=== PATIENT | male | born 1970 | race Caucasian/White ===

== ENCOUNTER 2018-06-26 08:43 | Outpatient (CLI) | payer MEDICARE ==
--- NOTE | 2018-06-26 12:00 | MRI ---
MRI LUMBAR SPINE WITHOUT CONTRAST: HISTORY: Back pain. Previous lumbar fusion. COMPARISON: 05/26/2011 TECHNIQUE: MRI lumbar spine is performed without contrast. Multisequential, multiplanar imaging is performed. FINDINGS: There is extensive metallic susceptibility artifact at the L3, L4, L5, and S1 levels. Evaluation of these levels is limited on the sagittal as well as axial sequences. The visualized lumbar vertebrae have appropriate T1 marrow signal intensity. No evidence of fracture . No significant STIR hyperintensity to suggest vertebral body edema or ligamentous injury. Symmetric signal intensity of the psoas muscles. Appropriate signal intensity of the visualized delisa d organs. The conus medullaris terminates at the mid L1 level. T11-T12: Adequate disk hydration. No significant central canal stenosis or foraminal narrowing. L1-L2: Adequate disk hydration. No significant central canal stenosis or foraminal narrowing. L2-L3: Limited evaluation due to metallic susceptibility artifact. Grossly, the central spinal shira l appears to be patent. No significant foraminal narrowing. L3-L4: Limited evaluation due to metallic susceptibility artifact. L4-L5: Limited evaluation due to metallic susceptibility artifact. L5-S1: Limited evaluation due to metallic susceptibility artifact. IMPRESSION: No significant stenosis of the visualized lumbar spine. Multiple levels cannot be assessed due to me tallic susceptibility artifact. POS: DAVID
== END 2018-06-26 08:44 | disposition home or self-care (01) ==
LOC: TBSIIMAG 08:43
PROVIDERS: ATTEND Family Medicine
DX: M54.9 Dorsalgia, unspecified (principal)
CPT/HCPCS: 72148

== ENCOUNTER 2019-05-10 01:09 | Observation (INO) | payer MEDICARE ==
[2019-05-10] MEDS ORDERED: Fentanyl 100 MCG/2 ML VIAL ONE (01:41)
[2019-05-10 01:47] LABS: PTT 43.1 SEC (22.9-36.1)
[2019-05-10 01:48] LABS: Prothrombin Time 13.3 SEC (12.0-14.7)
[2019-05-10] MEDS ORDERED: diphenhydrAMINE 50 MG/ML VIAL ONE (01:50)
[2019-05-10] MEDS ORDERED: Metoclopramide HCl 10 MG/2 ML VIAL ONE (01:50)
[2019-05-10 03:47] VITALS: BMI 31.3
[2019-05-10] MEDS ORDERED: Ondansetron ODT 4 MG TAB SL PRN (03:47)
[2019-05-10] MEDS ORDERED: Ondansetron PF 4 MG/2 ML Vial IVP PRN ×2 (03:47→08:39)
[2019-05-10] MEDS: Sodium Chloride 0.9% 1,000 ML IV SCH ×2 (05:18→05:21)
[2019-05-10] MEDS: Acetaminophen 325 MG TAB PO PRN ×2 (05:24→07:58)
[2019-05-10] MEDS ORDERED: Aspirin 325 MG TAB PO SCH (08:00)
[2019-05-10] MEDS ORDERED: Acetaminophen 325 MG TAB PO PRN (08:39)
[2019-05-10] MEDS ORDERED: hydrALAZINE 20 MG/ML VIAL SLOW IVP PRN (08:39)
[2019-05-10] MEDS ORDERED: Ondansetron ODT 4 MG TAB PO PRN (08:39)
[2019-05-10] MEDS ORDERED: Non-Formulary Item 1 EACH (Tadalafil [Cialis] 5 MG) PO SCH (09:00)
[2019-05-10] MEDS: HYDROcodone/Acetaminophen 10/325 mg Tablet PO PRN ×3 (09:39→22:30)
[2019-05-10] MEDS: Famotidine 20 MG TAB PO SCH ×2 (09:40→20:47)
[2019-05-10] MEDS: Enoxaparin Sodium 40 MG/0.4 ML SYRINGE SC SCH (09:40)
[2019-05-10] MEDS: Losartan/Hydrochlorothiazide 100 mg/25 mg Tablet PO SCH (09:40)
[2019-05-10] MEDS: Lorazepam 0.5 MG TAB PO PRN ×2 (09:40→22:30)
[2019-05-10] MEDS: Aspirin 325 mg Enteric Coated Tablet PO SCH (09:40)
[2019-05-10] MEDS ORDERED: Iopamidol 370 76% 100 ML VIAL ONE (09:53)
[2019-05-10 10:23] LABS: Cardiac Risk 3.4 (Less than 4.5)
[2019-05-10] MEDS ORDERED: Dihydroergotamine Mesylate 1 MG/ML AMP SLOW IVP PRN (12:02)
[2019-05-10] MEDS ORDERED: Metoclopramide HCl 10 MG/2 ML VIAL IVP SCH (12:15)
--- NOTE | 2019-05-10 13:36 | CT ---
CT angiogram head: 05/10/2019 COMPARISON: Head CT 05/09/2019 HISTORY: Evaluate for intracranial hemorrhage or aneurysm, headache TECHNIQUE: Axial CT imaging obtained at 5 mm intervals from vertex through skull base without contras t. Then, axial CT imaging obtained at 1.25 mm intervals from vertex through skull base with IV contrast using CT angiogram protocol. Coronal and sagittal 3-D reformatted imaging obtained. FINDINGS: The noncontrast enhanced head CT demonstrates no intracranial hemorrhage, midline shift, ma ss effect, or ventricular enlargement. The imaged paranasal sinuses and mastoid air cells are well aerated. No displaced calvarial fracture is noted. Postcontrast imaging demonstrates patency of the bilateral distal vertebral arteries. The right verte bral artery is dominant. The basilar artery and its branches are patent. No saccular aneurysm, high-grade stenosis, or vascula r occlusion is seen involving the posterior circulation. There is focal area of arterial ectasia at the level of the internal carotid artery terminus on the r ight. Exact configuration is difficult to define on this examination. This is felt to represent a focal area of saccular aneurysm formation as the vascular lumen measures approximately 5-6 mm in cran iocaudal dimension, as opposed to the contralateral ICA which measures 2-3 mm in craniocaudal dimension. The bulbous right ICA terminus measures 8 mm length. The A1 segment and the M1 segment ajay ears patent bilaterally. The MCA bifurcation appears unremarkable bilaterally. Distal ROSA and MCA branches appear intact. IMPRESSION: Bulbous appearance of the right internal carotid artery terminus suggesting focal ectasia /aneurysm. Exact configuration is difficult to define on this examination. This could represent a fusiform aneurysm or a wide necked saccular aneurysm. Recommend further assessment with MR angiogram of the head as 3-D imaging may better define configuration of distal right ICA.
--- NOTE | 2019-05-10 14:41 | HP ---
PRIMARY CARE PHYSICIAN: Dr. Keller. CHIEF COMPLAINT: Headache. HISTORY OF PRESENT ILLNESS: Mr. Marques is a pleasant 49-year-old gentleman, who has a history of hypertension and migraine headaches. He also has a history of a thoracic aneurysm status post repair. He was in his usual state of health until about a week ago when he started having headache around his temples. He says it was more like a sharp pain, but he would get pressure behind his eyes as well. There is no associated fever or chills. No nausea, no vomiting, but he does say that bright light bothers his eyes, and on yesterday, he was mowing the lawn, when he started having the headache again, his was present and noticed that he seemed to be jerking on his right side. She also says that he had a blank stare and seemed like he was "absent for the moment." She basically helped him to a seated position and said that this lasted about 10 to 15 minutes. He says that the headache can be about 10/10. He does not remember any abnormal behavior yesterday, however, and he says this headache is similar to migraine headache he has had in the past but with the exception of the altered mental status. He continues to have the headache at this time. He also denies any chest pain or shortness of breath. He currently does not have a culture manager and he does not remember having any recent cardiac workup. He was evaluated in the ER. CT scan of the brain was negative. However, his troponin was in an indeterminate range of 0.2. REVIEW OF SYSTEMS: CONSTITUTIONAL: He denies any fevers. No chills. No night sweats. No weight loss. HEENT: As the history of present illness. NECK: There has been no complaints of adenopathy. No neck pain. PULMONARY: No wheezing. No cough or congestion. CARDIOVASCULAR: He denies any chest pain. No shortness of breath. No PND. No orthopnea. No leg edema. GASTROINTESTINAL: No abdominal pain. No nausea. No vomiting. No change in bowels. GENITOURINARY: No urinary frequency or hematuria. No hesitancy. MUSCULOSKELETAL: No muscle pains, weakness, or joint pains. NEUROLOGIC: He has had no focal weakness. No seizures. SKIN AND INTEGUMENT: No skin changes that he has noted. PAST MEDICAL HISTORY: Significant for a thoracic aneurysm, hypertension, migraines, hyperlipidemia, gastroesophageal reflux disease. PAST SURGICAL HISTORY: He has had a thoracic aneurysm repair, shoulder surgery, back surgery, and surgery on his knees. ALLERGIES: NO KNOWN DRUG ALLERGIES. SOCIAL HISTORY: He is . He smokes about half a pack a day. Denies any alcohol use. He has three children, and he is a full code. FAMILY HISTORY: Significant for cancer, stroke, and heart disease. CURRENT MEDICATIONS: Include; 1. Losartan and hydrochlorothiazide 100/25 one tablet daily. 2. Lorazepam 0.5 mg twice daily. 3. Noti 10/325 one q.4 as needed. 4. Maxalt 10 mg twice daily. 5. Imitrex 4 mg subcu q.1 hour. 6. Cialis 5 mg daily. 7. Testosterone 50 mg IM as directed. PHYSICAL EXAMINATION: GENERAL: He is alert and oriented. He appears to be in some distress due to headache. He is well developed and well nourished. VITAL SIGNS: Blood pressure is 145/93, heart rate is in the 50s and 40s, respiratory rate of 18, and temperature is 98.6. HEENT: His pupils are equal, round, and reactive to light. Extraocular muscles are intact. His sclerae are anicteric. Throat; there is no erythema, no exudates. NECK: No adenopathy, no bruits. LUNGS: Clear to auscultation. There is no wheezing, no rales, no rhonchi. CARDIOVASCULAR: He has a normal S1 and S2. No S3 or S4. Heart rate is bradycardic. I did not appreciate any murmurs. ABDOMEN: Soft. It is nontender and nondistended. Positive for bowel sounds. No rebound. No guarding. EXTREMITIES: There is no clubbing or cyanosis. No edema. No calf tenderness. No joint effusions. NEUROLOGIC: Cranial nerves 2 through 12 are intact. His muscle strength is intact in both his upper and lower extremities. Essentially nonfocal. SKIN AND INTEGUMENT: There are no skin changes, no rash. LABORATORY RESULTS: He had a white blood cell count of 7.2, hemoglobin of 18, hematocrit is 55.9, and platelet count is 283. INR was 1.1. Sodium 139, potassium 3.5, chloride is 103, CO2 is 24, BUN of 13, creatinine 1.16, glucose is 92. Troponin was 0.206. He had an EKG, which by my reading was sinus rhythm, though it is bradycardia. His heart rate is 52. He had a first-degree AV block, as well as some T-wave inversions in V4 through V6, this is by my reading. He also had a CT scan of the brain, which was negative for any acute intracranial abnormalities. ASSESSMENT: 1. This is a pleasant 49-year-old gentleman, who presents to the emergency room with a fairly severe headache, which has been persistent, similar to his previous migraine headaches, but on this occasion, he had some neurological symptoms such that he had some shaking on the right side as well as some transient confusion. For this reason, he will be monitored in observation. We will consult Neurology for further recommendations such as whether or not an MRI or vascular imaging study is needed. 2. Elevated troponins. It is unclear whether or not this is related to the headache or possible even transient ischemic attack. He does have a history of smoking as well as a history of previous thoracic aneurysm, and given this and the elevation above his baseline in the past, we will get an echo as well as consult Cardiology. 3. Hypertension. His blood pressure appears to be fairly well controlled. We will continue the lisinopril and hydrochlorothiazide as well as p.r.n. hydralazine available. 4. He will be placed on deep venous thrombosis and gastrointestinal prophylaxis. Job ID: [id number]
--- NOTE | 2019-05-10 16:41 | CON ---
DATE OF CONSULTATION: HISTORY OF PRESENT ILLNESS: The patient is a 49-year-old gentleman, who presents for evaluation of headache and was noted to have an elevated troponin level. The patient has a previous history of an aortic dissection in 2012. He apparently had a repair of a proximal aortic aneurysm along with repair of the aortic valve. The patient has subsequently done well. The patient states that he has usually well controlled hypertension. The patient presented with several day history of severe headaches. He was noted to be hypertensive and admitted for further evaluation. The patient denies having any chest discomfort. PAST MEDICAL HISTORY: 1. Aortic dissection. 2. Hypertension. 3. BPH. 4. Anxiety. 5. Migraine headache. PAST SURGICAL HISTORY: Shoulder surgery, back surgery, knee surgery, and surgery for aortic dissection. SOCIAL HISTORY: He smokes half pack per day. MEDICATIONS: 1. Losartan 100/25 daily. 2. Cialis 5 daily. 3. Imitrex 4 subcu daily. 4. Maxalt 10 b.i.d. p.r.n. 5. Lorazepam 0.5 b.i.d. FAMILY HISTORY: Strong family history of coronary artery disease. ALLERGIES: NO KNOWN DRUG ALLERGIES. REVIEW OF SYSTEMS: Ten-point system, otherwise unremarkable. PHYSICAL EXAMINATION: GENERAL: This is a well-developed gentleman in mild distress. VITAL SIGNS: Blood pressure 164/104. NECK: No jugular venous distention. LUNGS: Clear to auscultation. HEART: Regular rate and rhythm. Normal S1 and S2. No murmurs. ABDOMEN: Nondistended. EXTREMITIES: Show no edema. VASCULAR: Radial pulses are 2+. LABORATORY RESULTS: His white blood cell count is 7.2, hemoglobin 18.0, hematocrit 55.9, and platelets are 283. Sodium was 139, potassium 3.5, chloride 103, bicarbonate 24, BUN 13, and creatinine 1.16. Troponin was 0.206. IMAGING DATA: His EKG reveals him to have sinus bradycardia with a T-wave abnormality suggestive of ischemia. IMPRESSION: 1. Hypertensive crisis. 2. Possible aneurysm. 3. History of migraine headaches. 4. History aortic dissection. 5. Indeterminate troponin level. 6. Tobacco abuse. PLAN: This gentleman presents with a possible aneurysm based on his CT scan, he is undergoing a Neurology evaluation. From a cardiac standpoint, his troponin is indeterminate. He has been highly advised to discontinue smoking. We will follow this patient with you through his hospitalization. Job ID: [id number] MTDD
[2019-05-10] MEDS ORDERED: predniSONE 20 MG TAB PO SCH (18:30)
[2019-05-10] MEDS ORDERED: Nicotine 14 MG PATCH TOP SCH (21:30)
[2019-05-11] MEDS: HYDROcodone/Acetaminophen 10/325 mg Tablet PO PRN ×3 (03:51→14:51)
[2019-05-11 05:27] LABS: #Basophils 0.1 thou/uL (0.0-0.2); #Lymphocytes 0.9 thou/uL (1.20-3.40); #Monocytes 0.1 thou/uL (0.11-0.59); #Neutrophils 6.8 thou/uL (1.40-6.50); %Basophils 1.5 % (0.0-1.0); %Eosinophils 0.1 % (0.0-10.0); %Lymphocytes 11.7 % (21.0-51.0); %Monocytes 1.6 % (0.0-10.0); %Neutrophils 85.1 % (42.0-75.0); Mean Corpuscular HGB CONC 32.9 g/dL (32.0-36.0); Mean Corpuscular Hemoglobin 30.9 pg (27.0-31.0); Mean Corpuscular Volume 93.8 fL (78.0-98.0); Mean Platelet Volume 6.3 fL (7.4-10.4); Platelet Count 295 thou/uL (130-400); RBC Distribution Width 11.9 % (11.5-14.5); Red Blood Cell (RBC) Count 6.14 mill/uL (4.70-6.10); White Blood Cell (WBC) Count 7.9 thou/uL (4.8-10.8)
[2019-05-11 05:48] LABS: Anion Gap 14 mmol/L (10-20); BUN (Urea Nitrogen) 12 mg/dL (8.4-25.7); Calc. Creatinine Clearance 108 mL/min (70-130); Calcium 10.4 mg/dL (7.8-10.44); Carbon Dioxide 21 mmol/L (22-29); Chloride 103 mmol/L (98-107); Estimated GFR-MDRD 73; Glucose 131 mg/dL (70-105); Potassium 4.8 mmol/L (3.5-5.1); Sodium 133 mmol/L (136-145)
[2019-05-11] MEDS: Losartan/Hydrochlorothiazide 100 mg/25 mg Tablet PO SCH (08:59)
[2019-05-11] MEDS: Enoxaparin Sodium 40 MG/0.4 ML SYRINGE SC SCH (08:59)
[2019-05-11] MEDS: Famotidine 20 MG TAB PO SCH (08:59)
[2019-05-11] MEDS: Aspirin 325 mg Enteric Coated Tablet PO SCH (08:59)
--- NOTE | 2019-05-11 11:37 | PDOC.PN ---
- Subjective Encounter Start Date: 05/11/19 Encounter Start Time: 11:35 Mr. Marques was seen today in follow-up of severe headache. He does not have any complaints, but is concerned about his blood pressure medications. He says his blood pressure had been running high even at home with his current regimen. - Objective Resuscitation Status - Order Detail: 05/10/19 08:34 Resuscitation Status Routine Resuscitation Status: FULL: Full Resuscitation MAR Reviewed: Yes Vital Signs & Weight: Vital Signs (12 hours) Temp Pulse Resp BP Pulse Ox 05/11/19 08:00 97.3 F L 54 L 12 155/88 H 94 L 05/11/19 03:19 97.9 F 48 L 16 151/90 H 95 Weight Weight 205 lb 14.4 oz I&O: 05/10/19 05/11/19 05/12/19 06:59 06:59 06:59 Intake Total 904 Balance 904 Result Diagrams: 05/11/19 05:09 05/11/19 05:09 Phys Exam - Physical Examination HEENT: PERRLA Respiratory: no wheezing, no rales, no rhonchi, clear to auscultation bilateral Cardiovascular: RRR, no significant murmur, no rub Gastrointestinal: soft, non-tender, no distention, positive bowel sounds Musculoskeletal: no edema, pulses present Dx/Plan (1) Migraine headache Code(s): G43.909 - MIGRAINE, UNSP, NOT INTRACTABLE, WITHOUT STATUS MIGRAINOSUS Status: Acute (2) HTN (hypertension) Code(s): I10 - ESSENTIAL (PRIMARY) HYPERTENSION Status: Acute (3) H/O thoracic aortic aneurysm repair Code(s): Z98.890 - OTHER SPECIFIED POSTPROCEDURAL STATES; Z86.79 - PERSONAL HISTORY OF OTHER DISEASES OF THE CIRCULATORY SYSTEM Status: Acute - Plan * Severe headache- likely a exacerbation of his migraine headache disease- this has improved with the Migraine headache protocol] * CTA of [place] demonstrated a possible aneurysm in the distal Right ICA- will check a MRA for better clarification of this area, and consult NS * HTN- Blood pressure is not optimally controlled- will add Amlodipine to his regimen * BPH- re-start Testosterone, and Cialis.
[2019-05-11] MEDS ORDERED: TESTOSTERONE CYPIONATE 50 MG IM SCH (11:45)
[2019-05-11] MEDS ORDERED: Amlodipine 5 MG TAB PO SCH (13:00)
--- NOTE | 2019-05-11 14:28 | MRI ---
MR ANGIOGRAM OF THE [place]: HISTORY: Possible aneurysm involving the right internal carotid artery terminus. COMPARISON: None. CORRELATION: CT angiogram of the head. TECHNIQUE: MR angiogram of the [place] was performed utilizing axial 3D [id number] imaging. Maximu m intensity projection images are submitted for interpretation. FINDINGS: There is symmetric flow-related signal in the distal cervical and intracranial internal carotid arter ies. There is slight increased flow-related signal in the right carotid terminus which is likely due to ectasia, rather than aneurysmal dilatation. No saccular aneurysm is evident. Anterior circulation demonstrates appropriate flow-related signal in the A1 and M1 segments as well a s the proximal MCA branches and A2 segments. Posterior circulation is unremarkable. No evidence of absent flow-related signal. IMPRESSION: No definite intracranial aneurysm. Focal ectasia of the right internal carotid artery terminus is fa vored. There is no associated saccular aneurysm. POS: OFF
--- NOTE | 2019-05-11 15:38 | EEG ---
Referring Physician: Silas CERVANTES EEG # [id number] TEST TYPE: ROUTINE PORTABLE INPATIENT REPORT: AN EEG USING THE INTERNATIONAL TEN-TWENTY SYSTEM OF ELECTRODE PLACEMENT WAS PERFORMED. The waking background is an 8-9 hertz alpha frequency. The patient remained awake throughout the study. Hyperventilation and photic stimulation were unremarkable. No epileptiform features were seen. IMPRESSION: THIS IS A NORMAL AWAKE EEG. Publicity Writer: COLTEN Aircraft Charter Dispatcher: FARHAT ENGLE
[2019-05-11 15:59] VITALS: BP 152/93; TEMP 97.8
[2019-05-11] MEDS ORDERED: Acetaminophen/Codeine 30-300mg Tablet PO SCH (17:00)
[2019-05-11] MEDS ORDERED: Valproate Sodium 1,000 MG in Sodium Chloride 0.9% 100 ML IVPB SCH (17:00)
--- NOTE | 2019-05-11 18:11 | CON ---
DATE OF CONSULTATION: 05/11/2019 CONSULTING PHYSICIAN: Hospitalist Service. IMPRESSION: Status migrainosus. PLAN: 1. The patient can be discharged home for outpatient followup. 2. Continue Depakote 1000 mg at night. 3. Office followup. HISTORY OF PRESENT ILLNESS: Mr. Marques is a 49-year-old man with a long history of migraine headache. He was working in the yard a few days ago when he developed a severe headache. He went to the emergency room to be treated. He was noted to be markedly hypertensive and was transferred here. His CT of the brain was unremarkable. His lab work was all unremarkable as well. He had an echocardiogram, which showed 50% to 55% ejection fraction. There was a questionable episode of some shaking on the right side of the body. There was no definite loss of consciousness associated with this. A followup EEG was normal. He had a CT angiogram, which showed a suspicious area of aneurysmal dilatation in the right internal carotid artery. MRA of the brain reportedly is normal. The patient still has a 3/10 headache. PAST MEDICAL HISTORY: Migraine. ALLERGIES: NONE REPORTED. SOCIAL HISTORY: No tobacco or alcohol. FAMILY HISTORY: Noncontributory. MEDICATION LIST: Reviewed. He was taking Topamax prior to admission. REVIEW OF SYSTEMS: Ten-system review of systems is otherwise negative. PHYSICAL EXAMINATION: GENERAL: He is a healthy-appearing middle-aged man, in no acute distress. VITAL SIGNS: Blood pressure 152/93, pulse 62, respirations 12, temperature 97.8. HEENT: Pupils are equal and reactive. Conjunctivae are clear. Oropharynx clear. Cranium, normocephalic and atraumatic. NECK: Supple. No lymphadenopathy. EXTREMITIES: No cyanosis, clubbing, or edema. NEUROLOGIC: He is alert and appropriate. His speech is fluent and clear. Cranial nerves 2 through 12 are intact. Motor exam showed symmetric strength. There is no tremor or dysmetria. Gait is steady. No abnormal movements are seen. SUMMARY: This is a middle-aged man with fairly persistent right hemicranial headache. I am going to switch him over to Depakote as his prophylactic medication. He has previously responded to Imitrex injections. I will give him a prescription for this for home use and follow up with him in the office. Job ID: [id number]
--- NOTE | 2019-05-12 05:27 | DIS ---
DATE OF ADMISSION: 05/10/2019 DATE OF DISCHARGE: 05/11/2019 PRIMARY CARE PHYSICIAN: Dr. Keller. DISCHARGE DISPOSITION: Home. PRIMARY DISCHARGE DIAGNOSES: 1. Acute exacerbation of migraine headache. 2. Hypertension, poorly controlled. 3. History of hypotestosteronemia. 4. History of coronary artery disease. 5. History of thoracic aortic aneurysm status post repair. PROCEDURES DONE DURING THE ADMISSION: The patient had a CT of the [place], which showed a bulbous appearance of the right internal carotid artery suggesting a focal ectasia, aneurysm. The exact configuration was difficult to determine. The patient had a followup MR angiogram of the brain in which there was no evidence of any aneurysm. There was some ectasia of the right internal carotid artery at the terminus, which was . There was no associated saccular aneurysm. The patient also had an echocardiogram in which the ejection fraction was estimated at 50% to 55%. There was normal left atrium and left ventricular size. CODE STATUS: Full code. ALLERGIES: NO KNOWN DRUG ALLERGIES. HOSPITAL COURSE: Mr. Marques is a pleasant 49-year-old gentleman, who was admitted to the hospital after he was having a very severe headache. His also noted that he seemed to have some altered mental status and that he was staring blankly and seemed to be "absent" during the headache. He was placed in observation and neurology consult was obtained. It was felt that this was likely representing an exacerbation of his migraine headache. He was placed on the migraine headache protocol and improved. Also, after the CT angiogram of the brain was done, there was some questionable area in the right internal carotid that was suggestive of a saccular aneurysm. However, after MR angiogram was done, this was ruled out and it was more of an ectatic vessel. It was also noted that his hypertension is poorly controlled and therefore, amlodipine is being added to his regimen and he is to have close outpatient followup with his primary care physician and possible Cardiology referral. Job ID: [id number]
--- NOTE | 2019-05-19 15:11 | EEG ---
Referring Physician: Silas CERVANTES EEG # [id number] TEST TYPE: ROUTINE PORTABLE INPATIENT REPORT: AN EEG USING THE INTERNATIONAL TEN-TWENTY SYSTEM OF ELECTRODE PLACEMENT WAS PERFORMED. The waking background is a medium amplitude 9 hertz Alpha frequency. The patient remained awake throughout the study. Hyperventilation and photic stimulation were unremarkable. No epileptiform features were present. IMPRESSION: THIS IS A NORMAL AWAKE EEG. Back Sewer: COLTEN Pit Crane Operator: FARHAT ENGLE
== END 2019-05-11 19:41 | disposition home or self-care (01) ==
LOC: ERS 01:09 → 2SE 02:26
PROVIDERS: ADMIT Hospitalist; ATTEND Hospitalist
DX: G43.901 Migraine, unspecified, not intractable, with status migrainosus (principal); I16.9 Hypertensive crisis, unspecified; I10 Essential (primary) hypertension; E78.5 Hyperlipidemia, unspecified; K21.9 Gastro-esophageal reflux disease without esophagitis; F17.210 Nicotine dependence, cigarettes, uncomplicated; R79.89 Other specified abnormal findings of blood chemistry; I77.89 Other specified disorders of arteries and arterioles; F41.9 Anxiety disorder, unspecified; N40.0 Benign prostatic hyperplasia without lower urinary tract symptoms; I25.10 Atherosclerotic heart disease of native coronary artery without angina pectoris; Z86.79 Personal history of other diseases of the circulatory system; Z79.899 Other long term (current) drug therapy; Z98.890 Other specified postprocedural states
CPT/HCPCS: 70496; 70544; 80048; 80061; 84484; 85025; 85610; 85730; 93005; 93306; 94760; 95816; 95819; 96361; 96367; 96372 ×2; 96374; 96375 ×2; 96376; 99285; G0378 ×2; 36415; J1110; J1200; J1650; J2765; J3010; J3490; J7512; Q9967

== ENCOUNTER 2020-06-16 11:17 | Emergency (ER) | payer MEDICARE, OTHER ==
[2020-06-17 12:22] LABS: SARS-CoV-2 MS2 Positive; SARS-CoV-2 N Gene Negative; SARS-CoV-2 S Gene Negative; SARS-CoV-2 orf1ab Negative
== END 2020-06-16 11:39 | disposition home or self-care (01) ==
LOC: ERS 11:17
DX: R06.02 Shortness of breath (principal); Z20.828 Contact with and (suspected) exposure to other viral communicable diseases; D64.9 Anemia, unspecified; I10 Essential (primary) hypertension; F17.210 Nicotine dependence, cigarettes, uncomplicated; I71.9 Aortic aneurysm of unspecified site, without rupture; N40.0 Benign prostatic hyperplasia without lower urinary tract symptoms; I20.9 Angina pectoris, unspecified
CPT/HCPCS: 99283; U0003; 87635

== ENCOUNTER 2020-06-19 07:28 | Outpatient (CLI) | payer MEDICARE, OTHER ==
[2020-06-19 16:11] LABS: #Lymphocytes 1.2 thou/uL (1.20-3.40); #Monocytes 0.5 thou/uL (0.11-0.59); #Neutrophils 5.2 thou/uL (1.40-6.50); %Basophils 0.2 % (0.0-1.0); %Eosinophils 0.6 % (0.0-10.0); %Lymphocytes 17.3 % (21.0-51.0); %Monocytes 6.7 % (0.0-10.0); %Neutrophils 75.3 % (42.0-75.0); Hemoglobin 16.6 g/dL (14.0-18.0); Mean Corpuscular HGB CONC 33.2 g/dL (32.0-36.0); Mean Corpuscular Hemoglobin 31.5 pg (27.0-31.0); Mean Corpuscular Volume 94.7 fL (78.0-98.0); Mean Platelet Volume 6.7 fL (7.4-10.4); Platelet Count 263 thou/uL (130-400); RBC Distribution Width 12.7 % (11.5-14.5); Red Blood Cell (RBC) Count 5.26 mill/uL (4.70-6.10); White Blood Cell (WBC) Count 6.9 thou/uL (4.8-10.8)
[2020-06-19 16:19] LABS: ALT (SGPT) 8 U/L (8-55); AST (SGOT) 12 U/L (5-34); Albumin 4.4 g/dL (3.5-5.0); Alkaline Phosphatase 76 U/L (40-110); Anion Gap 13 mmol/L (10-20); BUN (Urea Nitrogen) 9 mg/dL (8.4-25.7); Bilirubin, Total 0.6 mg/dL (0.2-1.2); Calc. Creatinine Clearance 0 mL/min (70-130); Carbon Dioxide 27 mmol/L (22-29); Chloride 100 mmol/L (98-107); Estimated GFR-MDRD 83; Globulin 2.7 g/dL (2.4-3.5); Glucose 82 mg/dL (70-105); Potassium 3.7 mmol/L (3.5-5.1); Protein, Total 7.1 g/dL (6.0-8.3); Sodium 136 mmol/L (136-145)
[2020-06-20 12:22] LABS: SARS-CoV-2 MS2 Positive; SARS-CoV-2 N Gene Negative; SARS-CoV-2 S Gene Negative; SARS-CoV-2 orf1ab Negative
== END 2020-06-19 07:29 | disposition home or self-care (01) ==
LOC: LABBT 07:28
PROVIDERS: ATTEND Internal Medicine Cardiovascular Disease
DX: Z01.818 Encounter for other preprocedural examination (principal); Z11.59 Encounter for screening for other viral diseases; R94.39 Abnormal result of other cardiovascular function study
CPT/HCPCS: 80053; 85025; 93005; U0003; 87635; 93010

== ENCOUNTER 2020-06-22 05:53 | Day surgery (SDC) | payer MEDICARE ==
[2020-06-22] MEDS ORDERED: Heparin 10,000 UNITS/1 ML VIAL ONE (06:35)
[2020-06-22] MEDS ORDERED: Fentanyl 100 MCG/2 ML VIAL ONE ×2 (07:00→11:01)
[2020-06-22] MEDS ORDERED: Midazolam HCl 2 mg/2 ml Vial ONE (07:00)
[2020-06-22] MEDS ORDERED: Bivalirudin 250 MG VIAL ONE (07:24)
[2020-06-22] MEDS ORDERED: Iopamidol 370 76% 100 ML VIAL ONE (08:44)
[2020-06-22] MEDS ORDERED: Acetaminophen/Codeine 30-300mg Tablet ONE ×2 (09:35→13:39)
--- NOTE | 2020-06-23 12:10 | DIS ---
DATE OF ADMISSION: 06/22/2020 DATE OF DISCHARGE: 06/22/2020 Mr. Marques underwent cardiac catheterization, which revealed a 50%-60% mid LAD lesion. There was normal flow in this artery via flow wire and so no intervention was performed. With his nonsustained ventricular tachycardia, losartan/hydrochlorothiazide would be discontinued. Instead he was started on metoprolol ER 50 q.a.m. He also is on Cardizem but has a history of SVT. His last LDL was 112 and he will be started on Repatha q.2 weeks 150 mg. He has history of muscle aches with Crestor in the past. Job ID: [id number]
== END 2020-06-22 15:25 | disposition home or self-care (01) ==
LOC: CCL 05:53
PROVIDERS: ATTEND Internal Medicine Cardiovascular Disease
PROC: 4A023N7 Measurement of Cardiac Sampling and Pressure, Left Heart, Percutaneous Approach (ICD-10-PCS; principal; 2020-06-22)
PROC: B2111ZZ Fluoroscopy of Multiple Coronary Arteries using Low Osmolar Contrast (ICD-10-PCS; 2020-06-22)
DX: I25.10 Atherosclerotic heart disease of native coronary artery without angina pectoris (principal); F17.200 Nicotine dependence, unspecified, uncomplicated; I47.1 Supraventricular tachycardia; I47.2 Ventricular tachycardia; I10 Essential (primary) hypertension; E78.00 Pure hypercholesterolemia, unspecified; N40.0 Benign prostatic hyperplasia without lower urinary tract symptoms; I83.93 Asymptomatic varicose veins of bilateral lower extremities; Z79.82 Long term (current) use of aspirin; Z79.899 Other long term (current) drug therapy; Z95.0 Presence of cardiac pacemaker; Z95.3 Presence of xenogenic heart valve
CPT/HCPCS: 93454; 93571; 99152; C1769; J0153; J0583; J1644; J2250; J3010; Q9967

== ENCOUNTER 2021-03-15 17:05 | Outpatient (CLI) | payer MEDICARE ==
[2021-03-15 12:23] LABS: Hemoglobin 16.1 g/dL (13.5-17.5); Mean Corpuscular HGB CONC 33.9 g/dL (32.0-36.0); Mean Corpuscular Hemoglobin 30.7 pg (27.0-33.0); Mean Corpuscular Volume 90.5 fl (81.2-95.1); Mean Platelet Volume 8.6 fl (7.4-10.4); Platelet Count 276 10x3/uL (150-450); Red Blood Cell (RBC) Count 5.25 10x6/uL (4.32-5.72); White Blood Cell (WBC) Count 8.6 10x3/uL (3.5-10.5)
[2021-03-15 12:40] LABS: Anion Gap 17 mmol/L (10-20); BUN (Urea Nitrogen) 16 mg/dL (8.4-25.7); Calc. Creatinine Clearance 0 mL/min (70-130); Calcium 9.3 mg/dL (7.8-10.44); Carbon Dioxide 23 mmol/L (22-29); Chloride 101 mmol/L (98-107); Glucose 165 mg/dL (70-105); Sodium 137 mmol/L (136-145)
[2021-03-16 01:53] LABS: SARS-CoV-2 PCR by NAA Not Detected (NotDetected)
== END 2021-03-15 17:06 | disposition home or self-care (01) ==
LOC: LABBT 17:05
PROVIDERS: ATTEND Neurological Surgery
DX: Z01.812 Encounter for preprocedural laboratory examination (principal); M54.12 Radiculopathy, cervical region; Z20.822 Contact with and (suspected) exposure to COVID-19
CPT/HCPCS: 80048; 85027; U0003; U0005; 87635

== ENCOUNTER 2021-03-19 07:25 | Observation (INO) | payer MEDICARE ==
[2021-03-19] MEDS ORDERED: Fentanyl 100 MCG/2 ML VIAL ONE ×6 (09:58→16:02)
[2021-03-19] MEDS ORDERED: Dexamethasone 20 MG/5 ML VIAL ONE (11:03)
[2021-03-19] MEDS ORDERED: PROPOFOL 200 MG/20 ML VIAL ONE (11:03)
[2021-03-19] MEDS ORDERED: Succinylcholine 200 MG/10 ml SYRINGE FS ONE (11:03)
[2021-03-19] MEDS ORDERED: Ketorolac Tromethamine 30 MG/ML VIAL ONE (11:03)
[2021-03-19] MEDS ORDERED: Ondansetron PF 4 MG/2 ML Vial ONE (11:03)
[2021-03-19] MEDS ORDERED: Lidocaine 1% PF 5 ML VIAL ONE (11:03)
[2021-03-19] MEDS ORDERED: Rocuronium Bromide 10 MG/ML (10ML VIAL) ONE (11:03)
[2021-03-19] MEDS ORDERED: Glycopyrrolate 0.2 MG/ML 5 ML SYRINGE ONE (11:03)
[2021-03-19] MEDS ORDERED: Promethazine HCl 25 MG/ML VIAL IM PRN ×2 (12:05→13:15)
[2021-03-19] MEDS ORDERED: Ondansetron HCl/PF 4 MG/2 ML Vial IVP PRN (12:05)
[2021-03-19] MEDS ORDERED: Promethazine HCl 25 MG/ML VIAL SLOW IVP PRN (12:05)
[2021-03-19] MEDS ORDERED: HYDROmorphone 2 MG/ML VIAL SLOW IVP PRN (12:05)
[2021-03-19] MEDS ORDERED: HYDROmorphone 2 MG/ML VIAL ONE (12:29)
[2021-03-19] MEDS ORDERED: Tamsulosin HCl 0.4 MG CAP ONE (12:42)
[2021-03-19] MEDS ORDERED: Ondansetron PF 4 MG/2 ML Vial IVP PRN (13:10)
[2021-03-19] MEDS ORDERED: traMADol HCl 50 MG TAB PO PRN ×2 (13:15)
[2021-03-19] MEDS ORDERED: Mag-Al 1200 mg/1200 mg/30 ML UDCUP PO PRN (13:15)
[2021-03-19] MEDS ORDERED: Milk Of Magnesia 30 ML UDCUP PO PRN (13:15)
[2021-03-19] MEDS ORDERED: Morphine 2 MG/ML VIAL SLOW IVP PRN (13:15)
[2021-03-19] MEDS ORDERED: Promethazine HCl 12.5 MG SUPP PR PRN (13:15)
[2021-03-19] MEDS ORDERED: tiZANidine HCl 4 MG TAB PO PRN (13:15)
[2021-03-19] MEDS ORDERED: Acetaminophen/Codeine 30-300mg Tablet PO PRN ×2 (13:15)
[2021-03-19] MEDS ORDERED: Promethazine 25 MG TAB PO PRN (13:15)
[2021-03-19] MEDS ORDERED: diphenhydrAMINE 50 MG/ML VIAL IVP PRN (13:15)
[2021-03-19] MEDS ORDERED: diphenhydrAMINE 25 MG CAP PO PRN (13:15)
[2021-03-19] MEDS ORDERED: Lorazepam 0.5 MG TAB PO PRN (13:26)
[2021-03-19] MEDS ORDERED: hydrALAZINE 20 MG/ML VIAL ONE (14:17)
[2021-03-19] MEDS: CEFAZOLIN 2 GM in Premix Bag 1 BAG IVPB SCH ×2 (15:20→21:59)
[2021-03-19 15:32] VITALS: BMI 30.5
[2021-03-19] MEDS: Morphine 4 MG/ML VIAL SLOW IVP PRN ×2 (17:20→21:58)
[2021-03-19] MEDS: Sodium Chloride 0.9% 1,000 ML IV SCH (19:17)
[2021-03-20] MEDS: Morphine 4 MG/ML VIAL SLOW IVP PRN (01:25)
[2021-03-20] MEDS: Sodium Chloride 0.9% 1,000 ML IV SCH (02:25)
[2021-03-20] MEDS: CEFAZOLIN 2 GM in Premix Bag 1 BAG IVPB SCH ×2 (05:21→15:00)
[2021-03-20] MEDS ORDERED: Tamsulosin HCl 0.4 MG CAP PO SCH (06:00)
[2021-03-20] MEDS ORDERED: Ubidecarenone 50 MG CAP PO SCH (09:00)
[2021-03-20] MEDS ORDERED: TADALAFIL PO SCH (09:00)
[2021-03-20 16:11] VITALS: BP 149/78; TEMP 97.7
== END 2021-03-20 15:50 | disposition home or self-care (01) ==
LOC: SDC 07:25 → SURG A 12:40
PROVIDERS: ADMIT Neurological Surgery; ATTEND Neurological Surgery
PROC: 0RG20A0 Fusion of 2 or more Cervical Vertebral Joints with Interbody Fusion Device, Anterior Approach, Anterior Column, Open Approach (ICD-10-PCS; principal; 2021-03-19)
PROC: 0RT30ZZ Resection of Cervical Vertebral Disc, Open Approach (ICD-10-PCS; 2021-03-19)
DX: M50.11 Cervical disc disorder with radiculopathy, high cervical region (principal); I11.9 Hypertensive heart disease without heart failure; G89.29 Other chronic pain; M54.9 Dorsalgia, unspecified; Z79.82 Long term (current) use of aspirin; Z79.899 Other long term (current) drug therapy; Z88.8 Allergy status to other drugs, medicaments and biological substances; Z95.0 Presence of cardiac pacemaker; Z98.1 Arthrodesis status
CPT/HCPCS: 20930; 20936; 22551; 22552; 22845; 22853 ×2; 76000; 96374; 96375; 96376 ×2; C1713 ×4; C1776; G0378 ×2; J0360; J0690; J1100; J1170; J1885; J2270; J2405; J2704; J3010

== ENCOUNTER 2021-04-05 09:00 | Outpatient (CLI) | payer MEDICARE | END 2021-04-05 09:01 | disposition home or self-care (01) | LOC: TBSIIMAG 09:00 | PROVIDERS: ATTEND Neurological Surgery | DX: M54.12 Radiculopathy, cervical region (principal); Z98.890 Other specified postprocedural states | CPT/HCPCS: 72040 ==

== ENCOUNTER 2021-09-14 14:29 | Emergency (ER) | payer MEDICARE ==
[2021-09-14] MEDS ORDERED: Bacitracin 1 PK ONE (15:23)
[2021-09-14] MEDS ORDERED: Ketorolac Tromethamine 30 MG/ML VIAL ONE (15:23)
== END 2021-09-14 16:16 | disposition home or self-care (01) ==
LOC: ERS 14:29
DX: S69.91XA Unspecified injury of right wrist, hand and finger(s), initial encounter (principal); I10 Essential (primary) hypertension; I25.2 Old myocardial infarction; I25.10 Atherosclerotic heart disease of native coronary artery without angina pectoris; F17.210 Nicotine dependence, cigarettes, uncomplicated; X58.XXXA Exposure to other specified factors, initial encounter
CPT/HCPCS: 96372; J1885

== ENCOUNTER 2022-10-20 21:30 | Emergency (ER) | payer MEDICARE ==
[~2022-10-20 21:30] MED LIST: Iopamidol 370 76% 100 ML VIAL ONE
[2022-10-20] MEDS ORDERED: Ondansetron PF 4 MG/2 ML Vial ONE (21:47)
[2022-10-20] MEDS ORDERED: Ketorolac Tromethamine 30 MG/ML VIAL ONE (21:47)
[2022-10-20] MEDS ORDERED: Morphine 4 MG/ML VIAL ONE ×2 (21:47→22:08)
[2022-10-20 22:12] LABS: #Basophils 0.1 thou/uL (0.0-0.2); #Eosinphils 0.1 thou/uL (0.0-0.7); #Lymphocytes 2.2 thou/uL (1.20-3.40); #Monocytes 0.7 thou/uL (0.11-0.59); #Neutrophils 4.7 thou/uL (1.40-6.50); %Eosinophils 1.4 % (0.0-10.0); %Lymphocytes 28.7 % (21.0-51.0); %Monocytes 8.9 % (0.0-10.0); %Neutrophils 60.1 % (42.0-75.0); Hemoglobin 18.5 g/dL (14.0-18.0); Mean Corpuscular HGB CONC 34.1 g/dL (32.0-36.0); Mean Corpuscular Hemoglobin 32.8 pg (27.0-31.0); Mean Corpuscular Volume 96.2 fl (78.0-98.0); Mean Platelet Volume 6.8 fL (7.4-10.4); Platelet Count 270 10x3/uL (130-400); RBC Distribution Width 12.3 % (11.5-14.5); Red Blood Cell (RBC) Count 5.64 mill/uL (4.70-6.10); White Blood Cell (WBC) Count 7.8 10x3/uL (4.8-10.8)
[2022-10-20 22:35] LABS: ALT (SGPT) 12 U/L (8-55); AST (SGOT) 15 U/L (5-34); Albumin 4.4 g/dL (3.5-5.0); Alkaline Phosphatase 88 U/L (40-110); Anion Gap 16 mmol/L (10-20); BUN (Urea Nitrogen) 7 mg/dL (8.4-25.7); Bilirubin, Total 1.3 mg/dL (0.2-1.2); Calc. Creatinine Clearance 0 mL/min (70-130); Calcium 9.5 mg/dL (7.8-10.44); Carbon Dioxide 26 mmol/L (22-29); Chloride 103 mmol/L (98-107); Estimated GFR 103; Globulin 3.2 g/dL (2.4-3.5); Glucose 101 mg/dL (70-105); Potassium 3.5 mmol/L (3.5-5.1); Protein, Total 7.6 g/dL (6.0-8.3); Sodium 141 mmol/L (136-145)
[2022-10-21] MEDS ORDERED: Nitroglycerin 0.4 MG TAB 1 EACH ONE (00:26)
[2022-10-21] MEDS ORDERED: Morphine 4 MG/ML VIAL ONE ×2 (00:29)
[2022-10-21 01:52] LABS: Bilirubin Negative (Negative); Blood, Urine Negative (Negative); Clarity Clear (Clear); Glucose, Urine (Dipstick) Normal (Negative); Ketone, Urine Negative (Negative); Leukocyte Negative Leu/uL (Negative); Nitrite Negative (Negative); Protein, Urine (Dipstick) Negative (Neg-Trace); Specific Gravity, Urine 1.048 (1.002-1.036); Urobilinogen Normal mg/dL (Less than 2); pH, Urine 6.5 (5.0-9.0)
== END 2022-10-21 02:33 | disposition home or self-care (01) ==
LOC: ERS 21:30
DX: R10.817 Generalized abdominal tenderness (principal); I10 Essential (primary) hypertension; E78.5 Hyperlipidemia, unspecified; F17.210 Nicotine dependence, cigarettes, uncomplicated; Z79.01 Long term (current) use of anticoagulants
CPT/HCPCS: 71045; 71275; 74174; 76870; 80053; 81003; 82274; 84484; 85025; 93005; 93976; 96374; 96375; 96376; J1885; J2270; J2405; Q9967

== ENCOUNTER 2022-12-17 12:48 | Outpatient (CLI) | payer MEDICARE | END 2022-12-17 12:49 | disposition home or self-care (01) | LOC: ULT 12:48 | PROVIDERS: ATTEND Nurse Practitioner Family | DX: R06.02 Shortness of breath (principal); I08.3 Combined rheumatic disorders of mitral, aortic and tricuspid valves | CPT/HCPCS: 93306 ==

== ENCOUNTER 2022-12-18 17:45 | Emergency (ER) | payer MEDICARE ==
[~2022-12-18 17:45] MED LIST changes: -Iopamidol 370 76% 100 ML VIAL ONE; +Iopamidol-370 76% 500 ML 1 ML ONE
[2022-12-18 19:11] LABS: #Basophils 0.1 thou/uL (0.0-0.2); #Eosinphils 0.2 thou/uL (0.0-0.7); #Lymphocytes 1.7 thou/uL (1.20-3.40); #Monocytes 0.5 thou/uL (0.11-0.59); #Neutrophils 3.9 thou/uL (1.40-6.50); %Eosinophils 2.4 % (0.0-10.0); %Lymphocytes 27.3 % (21.0-51.0); %Monocytes 8.4 % (0.0-10.0); Hemoglobin 16.3 g/dL (14.0-18.0); Mean Corpuscular HGB CONC 33.9 g/dL (32.0-36.0); Mean Corpuscular Hemoglobin 32.2 pg (27.0-31.0); Mean Corpuscular Volume 94.9 fl (78.0-98.0); Mean Platelet Volume 6.5 fL (7.4-10.4); Platelet Count 259 10x3/uL (130-400); RBC Distribution Width 11.9 % (11.5-14.5); Red Blood Cell (RBC) Count 5.07 mill/uL (4.70-6.10); White Blood Cell (WBC) Count 6.4 10x3/uL (4.8-10.8)
[2022-12-18 19:31] LABS: ALT (SGPT) 7 U/L (8-55); AST (SGOT) 14 U/L (5-34); Albumin 3.8 g/dL (3.5-5.0); Alkaline Phosphatase 73 U/L (40-110); Anion Gap 14 mmol/L (10-20); BUN (Urea Nitrogen) 9 mg/dL (8.4-25.7); Bilirubin, Total 0.7 mg/dL (0.2-1.2); Calc. Creatinine Clearance 0 mL/min (70-130); Calcium 8.3 mg/dL (7.8-10.44); Carbon Dioxide 23 mmol/L (22-29); Chloride 106 mmol/L (98-107); Estimated GFR 106; Globulin 2.4 g/dL (2.4-3.5); Glucose 90 mg/dL (70-105); Lipase 26 U/L (8-78); Potassium 3.7 mmol/L (3.5-5.1); Protein, Total 6.2 g/dL (6.0-8.3); Sodium 139 mmol/L (136-145)
== END 2022-12-18 20:25 | disposition home or self-care (01) ==
LOC: ERS 17:45
DX: N43.3 Hydrocele, unspecified (principal); I10 Essential (primary) hypertension; E78.5 Hyperlipidemia, unspecified; F17.210 Nicotine dependence, cigarettes, uncomplicated; Z79.01 Long term (current) use of anticoagulants
CPT/HCPCS: 36415; 74177; 76870; 80053; 83690; 84484; 85025; 93005; 93976; Q9967

== ENCOUNTER 2023-01-04 04:37 | Emergency (ER) | payer MEDICARE ==
[2023-01-04] MEDS ORDERED: Bicillin LA 1.2 MILLION UNITS/2 ML SYRINGE ONE (04:52)
[2023-01-04] MEDS ORDERED: Ketorolac Tromethamine 30 MG/ML VIAL ONE (04:53)
[2023-01-04] MEDS ORDERED: Dexamethasone 10 MG/ML VIAL ONE (04:53)
[2023-01-04 06:50] LABS: SARS-CoV-2 NAA Rapid Test DETECTED (NotDetected)
== END 2023-01-04 05:35 | disposition home or self-care (01) ==
LOC: ERS 04:37
DX: J02.9 Acute pharyngitis, unspecified (principal); I10 Essential (primary) hypertension; E78.5 Hyperlipidemia, unspecified; F17.210 Nicotine dependence, cigarettes, uncomplicated; Z79.01 Long term (current) use of anticoagulants; Z20.822 Contact with and (suspected) exposure to COVID-19
CPT/HCPCS: 0240U; J0561; 96372; 99283; J1100; J1885

== ENCOUNTER 2023-01-20 11:45 | Emergency (ER) | payer MEDICARE ==
[2023-01-20] MEDS ORDERED: Ketorolac Tromethamine 30 MG/ML VIAL ONE (12:05)
[2023-01-20] MEDS ORDERED: Fentanyl 100 MCG/2 ML VIAL ONE (12:05)
[2023-01-20 13:17] LABS: #Basophils 0.1 thou/uL (0.0-0.2); #Lymphocytes 1.6 thou/uL (1.20-3.40); #Monocytes 0.7 thou/uL (0.11-0.59); #Neutrophils 5.9 thou/uL (1.40-6.50); %Basophils 0.9 % (0.0-1.0); %Eosinophils 0.5 % (0.0-10.0); %Lymphocytes 18.9 % (21.0-51.0); %Monocytes 8.4 % (0.0-10.0); %Neutrophils 71.4 % (42.0-75.0); Hemoglobin 16.4 g/dL (14.0-18.0); Mean Corpuscular HGB CONC 34.6 g/dL (32.0-36.0); Mean Corpuscular Hemoglobin 32.3 pg (27.0-31.0); Mean Corpuscular Volume 93.3 fl (78.0-98.0); Mean Platelet Volume 6.5 fL (7.4-10.4); Platelet Count 282 10x3/uL (130-400); Red Blood Cell (RBC) Count 5.08 mill/uL (4.70-6.10); White Blood Cell (WBC) Count 8.2 10x3/uL (4.8-10.8)
[2023-01-20] MEDS ORDERED: Morphine 4 MG/ML VIAL ONE (13:29)
[2023-01-20 13:35] LABS: ALT (SGPT) 15 U/L (8-55); AST (SGOT) 16 U/L (5-34); Albumin 3.8 g/dL (3.5-5.0); Alkaline Phosphatase 78 U/L (40-110); Anion Gap 11 mmol/L (10-20); BUN (Urea Nitrogen) 10 mg/dL (8.4-25.7); CK (CPK) 148 U/L (30-200); Calc. Creatinine Clearance 0 mL/min (70-130); Calcium 8.5 mg/dL (7.8-10.44); Carbon Dioxide 24 mmol/L (22-29); Chloride 108 mmol/L (98-107); Estimated GFR 106; Globulin 2.7 g/dL (2.4-3.5); Glucose 90 mg/dL (70-105); Lipase 31 U/L (8-78); Potassium 3.4 mmol/L (3.5-5.1); Protein, Total 6.5 g/dL (6.0-8.3)
[2023-01-20 13:42] LABS: Sodium 140 mmol/L (136-145)
[2023-01-20 14:19] LABS: Bacteria/HPF None Seen HPF (None Seen); Bilirubin Negative (Negative); Blood, Urine Trace (Negative); Clarity Clear (Clear); Glucose, Urine (Dipstick) Normal (Negative); Ketone, Urine Negative (Negative); Leukocyte Negative Leu/uL (Negative); Nitrite Negative (Negative); Protein, Urine (Dipstick) Negative (Neg-Trace); Specific Gravity, Urine 1.014 (1.002-1.036); Squamous Epithelial None Seen HPF (0-3); Urobilinogen Normal mg/dL (Less than 2); WBC/HPF 0-3 HPF (0-3); pH, Urine 5.5 (5.0-9.0)
[2023-01-20 22:32] LABS: Chlam.trachomatis by PCR,Urine Not Detected (NotDetected); GC N.gonorrhoeae PCR,UrineVOID Not Detected (NotDetected)
== END 2023-01-20 14:49 | disposition home or self-care (01) ==
LOC: ERS 11:45
DX: N50.811 Right testicular pain (principal); I10 Essential (primary) hypertension; E78.5 Hyperlipidemia, unspecified; F17.210 Nicotine dependence, cigarettes, uncomplicated
CPT/HCPCS: 36415; 76870; 80053; 81003; 81015; 82550; 83690; 85025; 87086; 87491; 87591; 93976; 96374; 96375; J1885; J2270; J3010